=== PATIENT | male | born 1995 | race Caucasian/White ===

== ENCOUNTER 2019-10-17 16:09 | Emergency (ER) | payer MEDICAID, OTHER, SELFPAY ==
[~2019-10-17] VITALS: Ht 182.9 cm; Wt 66.3 kg
[2019-10-17 17:21] LABS: INFLUENZA A AMPLIFICATION NEGATIVE (NEGATIVE); INFLUENZA B AMPLIFICATION NEGATIVE (NEGATIVE)
[2019-10-17] MEDS ORDERED: CLAR250T22 PO (18:05)
[2019-10-17 18:10] VITALS: BP 126/90
== END 2019-10-17 18:13 | disposition home or self-care (01) ==
LOC: M ED 16:09
DX: J03.90 Acute tonsillitis, unspecified (principal); M79.10 Myalgia, unspecified site; R05 Cough; F17.210 Nicotine dependence, cigarettes, uncomplicated

== ENCOUNTER 2023-11-03 18:05 | Inpatient (IN) | payer OTHER, SELFPAY ==
[~2023-11-03] VITALS: Ht 182.9 cm; Wt 69.9 kg
[~2023-11-03 18:05] MED LIST: CLAR250T22 PO
[2023-11-03 18:58] LABS: HEMATOCRIT 51.5 % (42.0-52.0); HEMOGLOBIN 18.2 g/dl (13.5-17.5); MEAN CORPUSCULAR HEMOGLOBIN 31.5 pg (27.0-33.0); MEAN CORPUSCULAR HGB CONC 35.3 g/dl (32.0-36.5); MEAN CORPUSCULAR VOLUME 89.3 fl (80.0-96.0); PLATELET COUNT, AUTOMATED 306 10^3/uL (150-450); RED BLOOD COUNT 5.77 10^6/uL (4.30-6.10)
[2023-11-03 19:18] LABS: AMPHETAMINES LEVEL URINE NEGATIVE (NEGATIVE); BARBITURATES URINE NEGATIVE (NEGATIVE); BENZODIAZEPINES URINE NEGATIVE (NEGATIVE); CANNABINOIDS URINE NEGATIVE (NEGATIVE); COCAINE METABOLITE URINE NEGATIVE (NEGATIVE); METHADONE URINE NEGATIVE (NEGATIVE); OPIATES URINE NEGATIVE (NEGATIVE); PHENCYCLIDINE URINE NEGATIVE (NEGATIVE)
[2023-11-03 19:20] LABS: ETHYL ALCOHOL (ETHANOL) < 0.003 % (0.000-0.010)
[2023-11-03 19:22] LABS: ALBUMIN 4.6 G/DL (3.2-5.2); ALKALINE PHOSPHATASE 66 U/L (46-116); ALT/SGPT 20 U/L (7.0-40); AST/SGOT 14 U/L (<34); BILIRUBIN,DIRECT 0.2 MG/DL (<0.4); BILIRUBIN,TOTAL 0.6 MG/DL (0.3-1.2); BLOOD UREA NITROGEN 9 MG/DL (9-23); CALCIUM LEVEL 9.5 MG/DL (8.5-10.1); CARBON DIOXIDE LEVEL 30 MMOL/L (20-31); CHLORIDE LEVEL 103 MMOL/L (98-107); CREATININE FOR GFR 0.98 MG/DL (0.70-1.30); GLOMERULAR FILTRATION RATE > 60.0 (>60); GLUCOSE, FASTING 98 MG/DL (60-100); SALICYLATE LEVEL < 3.0 MG/DL (<30); SODIUM LEVEL 138 MMOL/L (136-145); TOTAL PROTEIN 7.8 G/DL (5.7-8.2)
[2023-11-03 19:24] LABS: THYROID STIMULATING HORMONE 0.958 uIU/ML (0.55-4.78)
[2023-11-03] MEDS ORDERED: HOME MED LIST COMPLETE! XX SCH (20:55)
[2023-11-04] MEDS: NICOTINE 21MG/24HR 1 EA TRANSDERMAL TD ONE (18:31)
[2023-11-05] MEDS ORDERED: MAALOX 30 ML SUSP *UDC PO PRN (18:30)
[2023-11-05] MEDS ORDERED: ACETAMINOPHEN TAB 650MG DOSE (2X325MG) PO PRN (18:30)
[2023-11-05] MEDS ORDERED: IBUPROFEN 400MG TAB PO PRN (18:30)
[2023-11-05] MEDS ORDERED: traZODone 50 MG TAB PO PRN (18:30)
[2023-11-05] MEDS ORDERED: MOM 30ML SUSPENSION UDC PO PRN (18:30)
[2023-11-05] MEDS ORDERED: diphenhydrAMINE 25MG CAP PO PRN (18:30)
[2023-11-05 21:12] VITALS: BP 121/82; TEMP 98.8; O2SAT 100
[2023-11-06 06:08] VITALS: BP 116/63; TEMP 97.3
[2023-11-06] MEDS: NICOTINE POLACRILEX 2 MG GUM PO PRN (11:23)
[2023-11-06 15:59] VITALS: BP 117/66; TEMP 97.3
[2023-11-07 06:51] VITALS: BP 104/51; TEMP 97.3; O2SAT 96
[2023-11-07 18:15] VITALS: BP 133/80; TEMP 97.8
[2023-11-08 06:21] VITALS: BP 100/59; TEMP 97.4; O2SAT 98
== END 2023-11-08 11:04 | disposition home or self-care (01) | DRG 754 ==
LOC: M ED 18:05 → EEVIPCON 11-05 18:30 → M ED INP 11-05 18:30 → M PSY 11-05 20:56
PROVIDERS: ADMIT Psychiatry & Neurology Psychiatry; ATTEND Student in an Organized Health Care Education/Training Program
DX: F32.A Depression, unspecified (principal); F41.9 Anxiety disorder, unspecified; F17.210 Nicotine dependence, cigarettes, uncomplicated; Z56.0 Unemployment, unspecified; Z91.51 Personal history of suicidal behavior; Z63.5 Disruption of family by separation and divorce; H11.31 Conjunctival hemorrhage, right eye